=== PATIENT | male | born 1965 | race Caucasian/White ===

== ENCOUNTER → 2024-01-02 11:44 | Outpatient (REF) | payer BC, SELFPAY | LOC: RAD 11:44 | PROVIDERS: ATTENDING PHYSICIAN Family Medicine; FAMILY PHYSICIAN Family Medicine | DX: R10.31 Right lower quadrant pain (principal) | CPT/HCPCS: 73502 ==

== ENCOUNTER 2024-02-29 06:18 | Day surgery (SDC) | payer BC, SELFPAY ==
--- NOTE | 2024-01-23 07:46 | CM ---
Patient is scheduled for an elective R THR on 02/29/24- he is a same day patient. Spoke with patient prior to surgery. Introduced role of Orthopedic Navigator. Patient reports that he lives with his in a two story home. There is one step into
the kitchen and 12 steps to the second floor. He currently functions independently. He has a cane, raised toilet seat and rolling walker. He has never had VN services. PCP is Jacobo Tyler.
Discussed orthopedic program and post surgical plans. Reviewed that he will have VN services initially and will then start outpatient PT. Patient selects [facility] (face sheet faxed to [facility] to facilitate confirmation of benefits) for his home care
needs and will come to for outpatient PT.
Patient is in agreement with plan and states that his will be home with him.
Patient will complete online education.
Plan: Orthopedic Navigator will remain available to assist with the care of patient and will reassess discharge needs after surgery.
[2024-02-10 08:58] VITALS: BMI 29.3
--- NOTE | 2024-02-10 10:10 | HPS.HSE ---
Family Physician
-
Family Physician: Jacobo Tylre
Chief Complaint
-
Avascular necrosis of the right hip. Same-day surgery.
History of Present Illness
The patient is a 58 year old male presenting today for avascular necrosis of the right hip. The patient reports significant right hip pain that radiates into his groin. His pain is worse with ambulation and has been present over the last
several months. He notes that his current pain is greatly interfering with his activities of daily living and is overall impacting his quality of life. He has tried and failed multiple conservative treatment measures in the past for his right hip
pain. These conservative treatment measures include activity modification, self-therapeutic exercises, attempted weight loss, medication management with Tylenol and NSAIDs, and the application of ice and/or heat. A recent right hip MRI confirmed
avascular necrosis. He was determined to be in need of a right total hip arthroplasty. He denies any current complaints today such as chest pain, shortness of breath, nausea, vomiting, diarrhea, lightheadedness, dizziness, cough, sore throat, or
fever.
Medical History
Past Medical History
Past Medical History: Reports Other
Additional Past Medical History:
1. Avascular necrosis of the right hip.
2. Hypertension.
3. Hyperlipidemia.
4. Paroxysmal atrial fibrillation/atrial flutter, status post cardioversion 2018; pharmacological therapy with Metoprolol Succinate as needed, oral anticoagulation with Eliquis as needed.
5. Atrial septal aneurysm, monitored with serial echocardiograms.
6. Remote pericarditis.
7. Colon polyps.
8. Right knee partial medial meniscus tear, treated conservatively.
9. Testicular hypofunction.
10. Prediabetes, A1c 6.1.
Past Surgical History: Reports Other
Additional Past Surgical History:
1. Cardioversion.
2. Vasectomy.
3. Divide teeth extraction.
4. Colonoscopy.
Social History
Tobacco: Non-smoker
Alcohol: Other (He reports social alcohol use on the weekends. )
Personal:
Living: Other (He lives with his , son, and future [id number] in a 2 story home. )
Family History
Family History: Not pertinent
Allergies / Home Medications
Allergy/Medication List:
Home medications:
1. Eliquis 5 mg p.o. twice a day as needed.
2. Aspirin 81 mg p.o. daily.
3. Atorvastatin 40 mg p.o. at bedtime.
4. Astelin 1 spray intranasal daily.
5. CoQ10 1 dose p.o. daily.
6. Flonase 2 sprays intranasal daily.
7. Losartan 50 mg p.o. daily.
8. Metoprolol Succinate 25 mg p.o. daily as needed.
9. Multivitamin 1 tablet p.o. daily.
10. Androgel 4 pumps topical daily.
Allergies: No known allergies.
Adverse drug reactions: Pseudoephedrine (hypertension).
Review of Systems
-
A 12 point ROS was completed and negative except as noted: Yes
Physical Exam
Vital Signs
Blood pressure 137/91. Heart rate 90. Respirations 18. Pulse ox 98%.
Height 6 feet. Weight 97.8 kg. BMI 29.2.
Physical Exam
General: Well Developed, Well Nourished and No Apparent Distress
HEENT: NormoCephalic, Moist mucous membranes, Atraumatic and PERRLA
Respiratory: Clear
Cardiac: Regular Rhythm
GI: Soft, Non Tender and Non Distended
Musculoskeletal: Other (Left hip: 30 internal, 30 external without pain. Right hip: 10 internal, 5 external with pain. Non-tender over hip abductors. )
Skin: Warm and Dry
Neuro: AO x 3 and Nonfocal/grossly intact
Laboratory Results
-
DIAGNOSTIC STUDIES as of 02/10/2024: White blood cell count 10.5. Hemoglobin 14.9. Platelet count 303,000. Sodium 135. Potassium 4.6. BUN 17. Creatinine 1.1. Glucose 110. Hemoglobin A1c 6.1. Calcium 10.0. AST 41. ALT 44. Albumin 4.9. MRSA screen
negative.
EKG 02/10/2024: Normal sinus rhythm. Compared to the EKG of April 09, 2021, no significant change was found.
Nuclear stress test 06/03/2021: Negative EKG for ischemia. Small fixed defect in the basal inferior and mid inferior segments consistent with soft tissue attenuation. Ejection fraction is 62%. This is a low risk study.
Echocardiogram 05/06/2021: LV ejection fraction is 55-60% by Almaguer's method of discs. Mild concentric left ventricular hypertrophy. Structurally normal mitral valve without significant stenosis or regurgitation. Structurally normal aortic valve
without significant stenosis or regurgitation. Tricuspid valve opens normally with trace tricuspid regurgitation. Estimated pulmonary artery pressure of 25 mmHg, assuming a right atrial pressure of 3 mmHg. Compared to prior study 07/05/2018, no
significant changes noted.
Impression/Plan
-
CLEARANCES:
1. Primary medical, Treasure Crain PA-C, cleared.
Primary medical phone number: [phone].
2. Cardiology, Dr. Geovany Scott, cleared.
3. Dental waived.
IMPRESSION/PLAN:
1. Avascular necrosis of the right hip in need of a right total hip arthroplasty with Dr. Roney Alex on 02/29/2024. The benefits and risks of the procedure have been explained to the patient. The patient understands these risks and wishes to
proceed.
2. DVT prophylaxis: Aspirin and bilateral venous depression devices due to the rarity of his atrial fibrillation and atrial flutter episodes. He reports his last dose of Eliquis as needed was approximately 1 year ago. Plasma flow devices were
encouraged to be used in the outpatient setting upon discharge due to his cardiac arrhythmias as well as current topical hormonal therapy.
3. 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 In preparation for his procedure, he has
already been prescribed Oxycodone 5 mg, 1-2 tablets p.o. every 6 hours as needed. He will also utilize Tylenol 1000 mg p.o. every 6 hours, Celebrex 200 mg p.o. daily, and Dexamethasone 4 mg p.o. twice a day for 3 days post-surgery.
4. Paroxysmal atrial fibrillation and atrial flutter: The patient was advised to bring his Metoprolol Succinate in the morning of his procedure in the event Anesthesia recommends he take it pre-operatively.
Patient's phone number: [phone].
Patient's contact (Norman Yi - Spouse): [phone].
[2024-02-10 10:12] LABS: Hemoglobin 14.9 g/dL (13.0-18.0); Mean Corp Hgb Conc. 35.5 g/dL (33.0-37.0); Mean Corpuscular Hgb 32.3 pg (27.0-31.0); Mean Corpuscular Volume 91.1 fL (80.0-94.0); Mean Platelet Volume 9.5 fL (7.4-10.4); Platelet Count 303 10^3/uL (130-400); Red Blood Cell Count 4.61 10^6/uL (4.70-6.10); Red Cell Dist. Width 12.3 % (11.5-14.5); White Blood Cell Count 10.5 10^3/uL (4.8-10.8)
[2024-02-10 10:28] LABS: ALT (SGPT) 44 U/L (0-50); AST (SGOT) 41 U/L (17-59); Albumin 4.9 g/dl (3.5-5.0); Alkaline Phosphatase 124 U/L (38-126); Blood Urea Nitrogen 17 mg/dl (9-20); Carbon Dioxide 24 mmol/L (22-30); Chloride 100 mmol/L (98-107); Estimated Creatinine Clearance 80 ml/min; Glucose 110 mg/dl (70-99); Potassium 4.6 mmol/L (3.5-5.1); Sodium 135 mmol/L (135-145); Total Bilirubin 1.3 mg/dl (0.2-1.3); Total Protein 7.7 g/dl (6.3-8.2); eGFR > 60.00
[2024-02-10 13:38] LABS: Glycohemoglobin (HgbA1c) 6.1 % (4.0-5.6)
[2024-02-10 14:04] VITALS: BMI 29.3
[2024-02-29] VITALS (13 sets, daily range): BP systolic 106–157; BP diastolic 67–96
[2024-02-29] MEDS: NORMOSOL-R 1000 IV ×2 (07:40→10:28)
[2024-02-29] MEDS: CELEBREX 200 MG PO (07:40)
[2024-02-29] MEDS: TYLENOL 650 MG PO (07:40)
--- NOTE | 2024-02-29 11:23 | CM ---
Patient had planned R THR today. Met with patient and his at bedside to review discharge plans. Patient will be returning home today with services through [facility]. On Tuesday, 03/05, patient will start outpatient PT at [facility]. Reviewed
MD follow up in two weeks and patient is aware of need to schedule appointment.
Patient has his rolling walker here with him.
PT and VN were kept updated as to progress and discharge plans.
[2024-02-29] MEDS: ANCEF 5 IV (12:53)
== END 2024-02-29 13:42 | disposition home health service (06) ==
LOC: SDS 06:18
PROVIDERS: ATTENDING PHYSICIAN Orthopaedic Surgery; FAMILY PHYSICIAN Family Medicine; OTHER PHYSICIAN Internal Medicine Cardiovascular Disease; OTHER PHYSICIAN Physician Assistant
DX: M87.9 Osteonecrosis, unspecified (principal)
CPT/HCPCS: 27130; 36415; 73502; 80053; 83036; 85027; 87070; 87176; 87205; 93005; 97162; C1776

== ENCOUNTER 2024-03-13 16:25 | Outpatient (RCR) | payer BC, SELFPAY | END 2024-03-13 23:59 | disposition home or self-care (01) | LOC: RPT 16:25 | PROVIDERS: ATTENDING PHYSICIAN Orthopaedic Surgery; FAMILY PHYSICIAN Family Medicine | DX: Z47.1 Aftercare following joint replacement surgery (principal); Z96.641 Presence of right artificial hip joint; R26.89 Other abnormalities of gait and mobility | CPT/HCPCS: 97110; 97116; 97140; 97162; 97530 ==

== ENCOUNTER 2024-03-29 14:47 | Outpatient (RCR) | payer BC, SELFPAY | END 2024-03-29 23:59 | disposition home or self-care (01) | LOC: RPT 14:47 | PROVIDERS: ATTENDING PHYSICIAN Orthopaedic Surgery; FAMILY PHYSICIAN Family Medicine | DX: Z47.1 Aftercare following joint replacement surgery (principal); Z96.641 Presence of right artificial hip joint; R26.89 Other abnormalities of gait and mobility | CPT/HCPCS: 97110; 97112; 97140; 97530 ==